=== PATIENT | male | born 1940 | race Caucasian/White ===

== ENCOUNTER 2021-11-12 19:03 | Emergency (ER) | payer OTHER | END 2021-11-13 00:15 | LOC: ER 19:03 | PROVIDERS: Student in an Organized Health Care Education/Training Program | DX: R45.851 Suicidal ideations (principal); Z20.822 Contact with and (suspected) exposure to COVID-19 ==

== ENCOUNTER 2021-11-12 19:36 | Inpatient (IN) | payer OTHER ==
[~2021-11-12] VITALS: Ht 175.3 cm; Wt 77.1 kg
--- NOTE | ~2021-11-12 | D ---
[facility] [address] [place] [address] DISCHARGE SUMMARY Name: FARHAT SNYDER Room #: 528B-B DIS IN M.R.#: [id number] Admission: 11/13/21 Attend Phys: Simone Ly DO Discharge: 11/21/21 Date of : 42 Report #: [id number] THIS REPORT FOR: cc: Adair Hernandez Jr, MD, Jr, Donald J. MD Kerstein, Andrew H. DO ~ DATE OF SERVICE: 11/21/2021 INPATIENT PSYCHIATRIC DISCHARGE SUMMARY ATTENDING PSYCHIATRIST: Simone Ly D.O. PARTS CLEANER: Shayne Dominguez M.D. DISCHARGE DIAGNOSES: Major neurocognitive disorder, likely due to Alzheimer's disease with behavioral disturbance, some improvement and unspecified psychosis. MEDICAL COMORBIDITIES: As follows, hypertension, hyperlipidemia, history of prostate and bladder cancer. The patient is discharging to his home in [place], [place]. His daughter, Erika, will be moving in with him and 24/7 care and supervision will be provided at his home. Overall, his DPOA and son, Chau, has organized this. ACTIVITY LEVEL: As tolerated. No driving. Does require 24/7 supervision. DIET: Regular. DISCHARGE MEDICATIONS: Atorvastatin 10 mg oral daily for hyperlipidemia, amlodipine 10 mg oral daily for hypertension, lisinopril 20 mg oral twice daily for hypertension, aspirin 81 mg oral daily, bupropion XL 300 mg oral daily for depression, Seroquel 300 mg oral at bedtime for psychosis and sleep, potassium chloride 20 mEq oral twice daily for supplementation, fluticasone 2 sprays each nostril daily for allergic rhinitis, docusate 100 mg oral twice daily for bowel motility; pantoprazole 20 mg oral daily for GERD, vitamin B12 1000 mcg oral daily for supplementation, vitamin D3 2000 International Units oral daily for supplementation. LABORATORY DATA: This admission on 11/17, white count 6.6, H and H 14.3 and 44.2, platelet count 240. Chemistry: Sodium 140, potassium 4.0, chloride 105, bicarbonate 25, anion gap 10, BUN 15, creatinine 1.2, estimated GFR 58, glucose 111, calcium 9.7, B12 this admission 952. Folate 18.5. TSH 0.594. Urinalysis this admission, trace blood. COVID-19 serology this admission not detected on 11/20/2021. Imaging this admission, KUB x-ray done on 11/13, for abdominal pain showed no acute process, done this admission. REASON FOR ADMISSION: Back on 11/14, 81-year-old male send out from [facility] in [place], [place]. He was sent to the ER by his [facility] [address] [place] [address] DISCHARGE SUMMARY Name: LILLIANFARHAT Room #: 528B-B DIS IN M.R.#: [id number] Admission: 11/13/21 Attend Phys: Simone Ly, Discharge: 11/21/21 Date of : 42 Report #: [id number] PCP, the patient has been very depressed and wishing that he was no longer alive. The PCP had admitted him to treat him for depression. HOSPITAL COURSE: The patient was admitted to Geriatric Psychiatry Unit. The patient had initial cognitive screening done and his [facility] mental status exam score 10 out of 30. History given that family indicated a neurodegenerative process. We did check him out for reversible causes. They have not done . No material abnormalities were found. Family meeting was had. I had recommended placement. The family came back a couple of days later and wanted to do the care at home. The patient tended to be on a required some prompting to participate in groups. In general, I do not think he required any physical or chemical restraints. CONDITION AT DISCHARGE: Stable. DISCHARGE PHYSICAL EXAMINATION: VITAL SIGNS: On day of discharge, temperature 35.8, pulse 76, respirations 16, BP 140/72. MUSCULOSKELETAL: Fair . MENTAL STATUS EXAMINATION: This is a well-developed, age-appearing male. Attention and concentration limited. Speech slow, reduced volume. Thought process: Linear, limited. Thought content: Focused on specific subjects. on this day of discharge, he was focused with this author sitting beside him . Memory not formally tested. Mood and affect constricted, congruent, diminished range. Insight and judgment impaired. Fund of knowledge below average. PROGNOSIS: The patient is guarded given his age of 81 and major neurocognitive disorder. By: [id number] Simone Ly, /nt
--- NOTE | 2021-11-13 01:18 | NUR ---
PATIENT ARRIVED BY WC FROM OUR ED AFTER HAVING NEGAVTIVE COVID PCR RESULT. PATIENT'S DEMEANOR IS BLUNTED AND SAD. HE IS NEGATIVE AND STATES THAT COMING TO THE UNIT HE SAW THE WORST OF EVERYTHING. HE TALKED ABOUT 'DARK,COLD ELEVATORS THAT LOCKED HIM IN, AND THEN SEEING PEOPLE ROAMING IN THE DINING ROOM AND HEARING WILD WOMEN YELLING OUT. HE STATES HE IS NOT SUICIDAL AND THAT HE HAS BEEN DEPRESSED FOR ABOUT A MONTH. HE IS A/O TO NAME AND PLACE BUT MEMORY ISSUES WITH RECALL SUCH WHO IS THE PRESIDENT OF THE US? AND WHAT IS THE MONTH WE ARE IN. HE HAS A MEDICAL HX OF DEPRESSION, HLD, HTN,PROSTATE AND BLADDER CANCER. PATIENT'S VITALS ARE 150/73,P64, R20, T97.5 AND 02 SAT AT 97% ROOM AIR. PATIENT DID PRESENT WITH PAIN AT RIGHT UPPER ABDOMEN ON PALPATION. THIS WAS ALSO NOTED BY LEANNA VENTURA AND SHE IS LOOKING INTO MORE TESTING. LABS OK. PATIENT HAS HAD COVID [employer] X2 VACCINES PLUS THE BOOSTER. TRIED TO CALL PATIENT'S SON KARINA SNYDER, WHO IS HIS DPOA BUT NO ANSWER. PATIENT WAS ORIENTED TO ROOM AND QUESTIONS ANSWERED. PATIENT VERY NEGATIVE IN HIS CONVERSATION. HE COMPLAINED ABOUT THE WINTER WAS TOO COLD AND THIS PLACE IS JUST COLD. I ADJUSTED HIS HEAT UP FOR HIM AT THAT POINT. PATIENT MADE COMFORTABLE IN BED. HE STATES HE HAS NOT SLEPT FOR A MONTH SINCE THE DEPRESSION CAME ON. DID NOT WANT TO TRY AND TAKE ANY FOR SLEEP SO DID NOT GET AN ORDER. PATIENT IS ANXIOUS AND SCARED TO BE HERE. HE KEEPS ASKING, "DO THOSE PEOPLE WANDER INTO MY ROOM?" I EXPLAINED WE DO HAVE SOME WHO WANDER THE MCDONOUGH BUT HE IS SAFE. PATIENT IS AFRAID THAT HE IS GOING TO BE INCONTINENT. HE STATES IT HASN'T HAPPENED BEFORE BUT HE MAY HAVE AN ACCIDENT. SHOWED HIM WHERE THE BATHROOM IS AND EXPLAINED THAT WE WILL HELP HIM IF THAT HAPPENS. PATIENT LIKES TO GO BY THE NAME "ROBBY". 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 HE HAS BEEN 3 TIMES AND HAS A SON, WHO IS DPOA, AND HIS 2 DAUGHTERS. PATIENT LAYING IN BED AT REST AT THIS TIME. BED IN LOW POSITION AND BED ALARM IS ON. ROUTINE ROUNDS TO ASSESS SAFETY AND STATUS OF PATIENT.
[2021-11-13 03:40] VITALS: BP 150/73
[2021-11-13 07:53] VITALS: BP 150/67
[2021-11-13 09:00] VITALS: BP 150/67
[2021-11-13 10:00] LABS: CHOLESTEROL 113 mg/dL (<200); HDL CHOLESTEROL 41 mg/dL (>40); LDL CHOLESTEROL 56 mg/dL (<100); TC:HDL 2.8 Ratio (Not establshd); TRIGLYCERIDE 81 mg/dL (<150); VLDL 16 mg/dL (<40)
--- NOTE | 2021-11-13 10:49 | NUR ---
Nutrition: pt admitted with unspecified pyschosis, SI to SBH unit. Seen due to new admission. Nsg admission screen indicates poor appetite. Pt unable to expand further, was minimally conversive during visit. Did eat 100% of breakfast this am. Denied need for supplements and was unable to verbalize UBW. Currently BMI 20, WNL. PMH of HLD, HTN, prostate/bladder CA, depression. On B12 and Vitamin D supplementation. Pt did voice he avoids drinking milk as it causes bloating. Able to eat items that are cooked with milk however. Will follow po and weight trends for intervention need. Otherwise consider low risk
--- NOTE | 2021-11-13 12:02 | NUR ---
Yovanny who prefers to go by "Diaz" was alert and oriented x4 this shift. He was withdrawn and isolative to his room this shift, often noted to be resting/sleeping in bed. He was medication and meal compliant without difficulty. He expressed that he does not feel he needs to be here but did endorse feeling depressed. He denied SI/HI/LABOY and remained safe while on the unit. A KUB was done this morning due to pain upon palpitation to his abdomen but KUB was negative. Staff will continue to try to get ahold of pt's sonKenton to get consent for treatment signed as car shifter was unable to get ahold of him. Pt stated he had a BM this morning and did not voice any physical complaints. Will continue to monitor.
--- NOTE | 2021-11-13 14:04 | NUR ---
Pt's daughters phone numbers are: Erika Luciano and Lucila Manuel . Will place in pt's chart as well.
--- NOTE | 2021-11-13 18:03 | NUR ---
MAT and Dr. Bender met with the Pt in his room. Pt was able to answer most of the assessment questions. Pt did not seem to know why he was on a behavioral Health unit and believed he was in the hospital due to having diarrhea. Pt denied SI/HI. Pt was oriented x3. Pt stated that his son Kenton was his DPOA. Pt stated he had a psychiatric inpt stay about 20 years ago due to depression. Pt stated he has been and 3x. Pt currently lives alone and his son Kenton comes to his home to assist a few times per week. Pt reported he has 4 child, 2 son and 2 daughters. Pt denied ETOH or drug use. Pt did not have any questions or concerns at this time. MAT will continue to follow
--- NOTE | 2021-11-13 18:14 | NUR ---
MAT and Dr. Bender attempted to call Kenton, . Kenton did not answer and a VM could not be left due to Kenton's VM being full. Pt's daughter Maritza Manuel, , was avaliable. Maritza informed that Pt started to decline about 2 weeks ago. The Pt was not bathing, not paying his bills, and not taking his medications. Maritza informed Kenton goes to the Pt's home several times a week and sorts the Pts medications for Pt to take, however Pt forgets. Felicia stated Pt has a hx of chronic depression and schizophrenia. Pt's PCP is Adair Hernandez and Pt has an appointment on 12/25/2021. Felicia stated the Pt did not have any mental health services that she was aware of. Maritza informed the Pt's last inpt psych stay was about 10 years ago at [facility]. Jeraldshayla had no questions at this time. Mat will continue to follow.
[2021-11-13 20:14] VITALS: BP 132/90
--- NOTE | 2021-11-13 21:39 | H ---
[facility] [place] [address] HISTORY AND PHYSICAL Name: FARHAT SNYDER Room #: 528B-B ADM IN M.R.#: [id number] Admission: 11/13/21 Attend Phys: Simone Ly DO Discharge: Date of : 42 Report #: [id number] THIS REPORT FOR: cc: Adair Hernandez Jr, MD, Jr, Donald J. MD Kerstein,Simone Medel DO ~ DATE OF SERVICE: 11/13/2021 INPATIENT GERIATRIC PSYCHIATRIC EVALUATION ATTENDING PSYCHIATRIST: Simone Ly DO MEDICAL CONSULTANTS: Sanjana Aiken APRN and Shayne Dominguez MD and his hospitalist team. REASON FOR ADMISSION: Suicidal ideation, depression, poor intake, interrupted sleep. Access to firearms, some self-care failure. SOURCES OF INFORMATION: Telephone conversation with daughterMelina. Chart reviewed. son Kenton is his DPOA -voicemail got when I called, could not leave messages on. I asked the daughter, Melina. She relayed my cell number to the patient's son. The patient was a referral from [facility] in [place], [place]. HISTORY OF PRESENT ILLNESS: The notes from [place] read that the patient presented to the Emergency Room in [place] after he saw his primary care provider earlier in the day. The primary care provider is Dr. Ghosh. The patient had a mental health assessment due to him reporting increased depression, suicidal ideations. In the ER, the patient denied the suicidal ideations; however, he did report to his PCP, he has been very depressed and wishing that he is no longer alive. The patient states he does have poor appetite, but did not mention anything about being nauseous. During the assessment, he denied homicidal ideations and psychosis in the [place] ED. The patient stated several times that he does not want to go inpatient away from his family at [place] with his family. He did state that he has firearms in the home and he agreed to have his children remove them. Dr. Baca, the Emergency Room physician spoke with Dr. Hernandez and they both strongly recommended inpatient psychiatric hospitalization. Apparently, the ED doc noted that he told Dr. Hernandez that he would just not wake up, is not eating well, and has lost weight. Apparently lab work and CT done last week. He has a history 10-12 years ago, severe depression, requiring electroconvulsive therapy. The patient reported he has been feeling bad because he got on some antibiotics for dental work [address] [address] HISTORY AND PHYSICAL Name: MARYA SNYDERT Room #: 528B-B ADM IN M.R.#: [id number] Admission: 11/13/21 Attend Phys: Simone Ly DO Discharge: Date of : 42 Report #: [id number] approximately a month or so ago. PAST MEDICAL HISTORY: Includes bladder cancer, hyperlipidemia, hypertension, prostate cancer. PSYCHIATRIC HISTORY: Depression. No pertinent surgical history. HOME MEDICATIONS: Noted as amlodipine 10 mg daily, Abilify 10 mg oral daily, cholecalciferol vitamin D3 50 mcg 2000 international units oral daily, cyanocobalamin 1000 mcg oral daily, docusate 100 mg oral twice per day, clorazepate which is Tranxene 7.5 mg 2 times a day, Flonase 1 spray each nostril daily, lisinopril 1 tablet by mouth twice a day, meclizine 25 mg 3 times a day as needed, omeprazole 20 mg oral daily, potassium chloride 20 mEq oral daily, and Seroquel 300 mg oral at bedtime. ALLERGIES: TO PENICILLIN. FAMILY HISTORY: Aneurysm in his mother and emphysema in his father. SOCIAL HISTORY: He is a former smoker, no history of smokeless tobacco, never used. Denies alcohol. Denies vaping use. REVIEW OF SYSTEMS: Done in the [facility]. CONSTITUTIONAL: Negative for chills and fever. HEENT: Negative for sore throat. EYES: Negative for visual disturbance. RESPIRATORY: Negative for cough and shortness of breath. CARDIOVASCULAR: Negative for chest pain. GASTROINTESTINAL: Negative for constipation, nausea. Negative for abdominal pain and vomiting. GENITOURINARY: Negative for dysuria. MUSCULOSKELETAL: Negative for back pain and neck pain. SKIN: Negative for rash. NEUROLOGIC: Negative for facial asymmetry, speech difficulty and headaches. Interestingly, the pulmonary, they note increased breath sound in the left base. There is a note here from [facility] in [place]. Apparently, the son has been coming over twice a day to be sure they did not change his medicine; however, there is some question about whether or not he is compliant with medications. Judgment continues to be very sad, reporting that he cannot eat, cannot sleep and is nauseated. He reports that he simply does not wish to [facility] [address] [place] [address] HISTORY AND PHYSICAL Name: FARHAT SNYDER Room #: 528B-B ADM IN M.R.#: [id number] Admission: 11/13/21 Attend Phys: Simone Ly, DO Discharge: Date of : 42 Report #: [id number] live any longer. Apparently, his ECT hospitalization was in [place], I believe they referred him to [place], [place]. LABORATORY DATA: Recent laboratories on 11/05 B12 level 1117. Folate 22.62. Both of those were all within normal limits. White count 11.57, H and H 16.7 and 52, platelet count 236. Sodium was 142, potassium 4.4, chloride 109, bicarbonate 24, anion gap 9, calcium 10.2, glucose 132, total protein serum 7.1, albumin 4.5, alkaline phosphatase 124, ALT 25, AST 26, total bilirubin 0.9, BUN 60, creatinine 1.3, GFR male non- is 53.1. Dr. Hernandez diagnosed him with major depressive disorder, so it sounds like he did that out of safety concerns. No recent labs from the ED up there in [place]. He had a potassium 3.5, alkaline phosphatase slightly elevated at 124, otherwise, his CMP looked reasonable. Creatinine was 1.1. White count 8.5, H and H of 10.5 and 47, platelet count 240. We did a KUb for abdominal pain this AM which was negative. FAMILY HISTORY: He had several children. He has been and 3 times. No longer . He completed 12th grade. He was a part-time juvenile officer in the past. Otherwise, did farming. PHYSICAL EXAMINATION: VITAL SIGNS: Today temperature 36.2, pulse 72, respiratory rate 19, BP 150/67 today, pulse ox 98%. GENERAL: Lying in bed, somewhat disheveled, slow, monotone speech. MENTAL STATUS EXAMINATION: Well-developed, depressed, ill-appearing male. Attention and concentration fair to limited. Speech: Monotone flat. Thought process: Linear, limited. Thought content: Relative poverty of thought. Denied presently suicidal or homicidal ideations. Denied auditory, visual, or tactile hallucinations, reporting is not sure why he is in the hospital, he was overall slow to respond. Memory not formally tested. Insight and judgment limited. Fund of knowledge below average. FORMULATION: An 81-year-old male brought in from [facility] for SI without plan. History of severe depression, requiring ECT. DIAGNOSES: At this time, major depressive disorder, recurrent, severe degree. Cannot exclude major neurocognitive disorder. Still need to evaluate. His medical comorbidities include hypertension, B12 deficiency, hyperlipidemia. PLAN: Admitted to [facility] voluntarily. At this point, started on Seroquel 300 mg oral at bedtime, potassium chloride 20 mEq p.o. b.i.d., lisinopril 20 mg p.o. b.i.d., Flonase 1 spray each nostril daily, docusate 100 mg p.o. b.i.d., cyanocobalamin 1000 mcg oral daily, clonazepam 0.[address] of Tranxene, vitamin D 2000 International Units oral daily that is really D3, atorvastatin 10 mg oral daily, [facility] [address] [place] [address] HISTORY AND PHYSICAL Name: MARYA SNYDERT Room #: 528B-B ADM IN M.R.#: [id number] Admission: 11/13/21 Attend Phys: Simone Ly, Discharge: Date of : 42 Report #: [id number] aspirin 81 mg oral daily, aripiprazole 2 mg p.o. daily, amlodipine 10 mg p.o. daily, pantoprazole 20 mg p.o. daily. We will evaluate, stabilize see how he does the next 1-2 days, complete cognitive assessment before going over further diagnostic and medication concerns. He is a full code. ALLERGIES: TO PENICILLIN. Time spent on this case at least 60 minutes, greater than 50% of time was for review of records and coordination of care. STRENGTHS: He is insured, has supportive family. WEAKNESSES: poor coping skills <ELECTRONICALLY SIGNED> By: Simone Ly DO 11/13/21 [id number] Simone Ly DO /nt
--- NOTE | 2021-11-14 04:18 | NUR ---
CARE TRANSFERRED 1899. LATER PT AAOX2, VSS, RR EVEN AND NONLABORED ON RA. PT DENIES SI/HI AND PAIN. PT CALM AND COOPEATIVE. PT BED ADJUSTED FOR COMFORT. PT LUNGS CLEAR, HT RR, ABD SOFT/ACTIVE/NONTENDER. PT HAD NO DIFFICULTIE TAKING MEDICATION WHOLE WITH WATER. PT WILL CONTINUE TO BE MONITOR PER [facility] PROTOCOL.
[2021-11-14 07:09] LABS: GLYCOHEMOGLOBIN (HGB A1C) 5.3 % (4.8-5.6)
[2021-11-14 09:58] VITALS: BP 136/76
[2021-11-14 10:50] VITALS: BP 128/64
[2021-11-14 12:20] VITALS: BP 136/76
--- NOTE | 2021-11-14 13:34 | NUR ---
RESUMMED CARE; PATIENT LOCATED IN HIS ROOM RESTING COMFORTABLY; PATIENT DENIES PAIN-SOB-CP; NO ACUTE S/O DISTRESS NOTED; VSS ON ROOMAIR; PATIENT DENIED SI/HI/AVH; PRESENTS CALM-FLAT AFFECT; DENIES BEING DEPRESSED BUT STATES "I'M JUST TIRED." PATIENT TOOK MEDICATIONS WHOLE IN APPLESAUCE THIS MORNING; ST SAW PATIENT FOR MEDICATION ADMINISTRATION AND BREAKFAST; MEAL/MED COMPLAINT; AMBULATES WITHOUT AID-STEADY GAIT; A&O*2; WITHDRAWN-PATIENT WAS IN HIS ROOM MOST OF THE DAY-DID ATTEND GROUPS; PATIENT STATED HE HAD A BOWEL MOVEMENT YESTERDAY- ABDOMEN WAS EOPB-[id number] TENDERNESS PRESENT IN LRQ-LLQ, BSP*4; ON LOW-FALL RISK PRECAUTIONS; WILL CONTINUE TO MONITIOR FOR SAFETY AND BEHAVIORS;
[2021-11-14 15:23] LABS: CALCIUM 9.7 mg/dL (8.5-10.1); CREATININE 1.4 mg/dL (0.7-1.3); MAGNESIUM 2.1 mg/dL (1.8-2.4); POTASSIUM 4.3 mmol/L (3.5-5.1)
[2021-11-14 19:38] VITALS: BP 128/64
--- NOTE | 2021-11-14 23:23 | NUR ---
PATIENT CARE WAS RESUMED AT 1900.HE IS ALERT AND ORIENTED. HE WAS RESTING IN BED IN HIS ROOM AND HE IS ABLE TO VERBALIZE HIS NEEDS AND CONCERN. DENIES PAINS/SI/AVH/HI. BS IS ACTIVE X4 QUADS.ABD IS SOFT AND NON TENDER. HE TOOK HIS MEDS WHOLE. MIN ASSIST WITH CARE.HE IS CONTINENT OF BOWEL AND BLADDER.BED IS LOW AND LOCKED.Q12 MINUTES CHECKS ARE ON GOING.NON SKID SOCKS ON. CONTINUE CARE AND MONITOR.
[2021-11-15 09:13] VITALS: BP 127/78
[2021-11-15 12:00] VITALS: BP 127/78
--- NOTE | 2021-11-15 13:33 | NUR ---
RESUMMED CARE; PATIENT LOCATED IN ROOM RESTING COMFORTABLY; PATIENT DENIES PAIN-SOB-CP; PATIENT PRESENTS [id number]-RUXB-[id number]-FLAT AFFECT; PATIENT DENIES BEING DEPRESSED, ALTHOUGH STATES "I JUST WANT TO BE ANYWHERE BUT HERE." PATIENT HAS TO BE ENCOURAGED BY STAFF TO PARTICIPATE IN GROUPS; SPECIAL EDUCATION RESOURCE ROOM TEACHER ASKED PATIENT IF HE WOULD BE INTERESTED IN A SHOWER AND SHAVE-PATIENT STATES "THERE IS NOT POINT ANYMORE." AMBULATORY WITHOUT AID-STEAY GAIT; VSS ON ROOMAIR; DENIES SI/HI/AVH; LOW-FALL RISK PRECAUTIONS ARE IN PLACE; A&O*2; CONFUSED; MEAL/MEDICATION COMPLIANT; WILL CONTINUE TO MONITIOR PER [facility] PROTOCOL;
--- NOTE | 2021-11-15 18:23 | NUR ---
MAT and Dr. Bender recieved a call from Kenton, Pt's son/DPOA. Kenton was provided with and update on the Pt. Also recommendation that Pt is needing 24/ supervision. Kenton stated he wanted to speak with his sisters concerning the matter. The Pt may not qualify for medicaid due to owning 2 homes at this time. Kenton was unsure of the Pt's full financial situation. A family meeting was set for 11/16/21 @ 1300. MAT will continue to follow
[2021-11-15 19:47] VITALS: BP 123/60
[2021-11-15 20:00] VITALS: BP 123/60
--- NOTE | 2021-11-15 23:46 | NUR ---
RACIELSURI CARE WAS RESUMED AT 1900. HE WAS IN HIS ROOM RESTING IN BED. LUNGS ARE CLEAR AND HE IS ABLE TO VERBALIZE HIS NEEDS. TOOK HIS MEDS WHOLE AND DENIES PAINS/SI/AVH/HI.NO CONCERN NOTED AT THIS TIME. BED IS LOW AND LOOCK [id number] CHECKS ARE ACTIVE CONTINUE CARE
[2021-11-16 09:53] VITALS: BP 143/72
[2021-11-16 10:16] VITALS: BP 143/72
--- NOTE | 2021-11-16 17:21 | NUR ---
MAT and Dr. Bender participated in a family meeting. The Pt was apart of this meeting. Kenton, Erika, and Jelly (Pt's children) were also on apart on the meeting via phone. An update was given on the Pt and the recommedation for Assisted living was given. Placement vs going back home was discussed. The family stated they would like to place the Pt due to no one being able to care for the Pt in the home. MAT and Dr. Ly provided education on LTC placement and payment for LTC. The family was encouraged to look at the Pt's finances and AL facilities. MAT will check back in with the family on Friday concerning placement.
--- NOTE | 2021-11-16 18:06 | NUR ---
Pt was alert and oriented to self and time, but disoriented to place and situation. He believed that he was in the "lounge of a muslim or recreation center". He presented as calm, cooperative, pleasant, and withdrawn. He does present as depressed but denied SI/HI/LABOY and remained safe on the unit throughout the day. He was medication and meal compliant, without difficulty. Pt received a shower this shift, with much encouragement from staff. Dr. Ly approached this RN and asked to develop a schedule for pt to call his three children; one child a day. A copy of the schedule was place in the top of pt's chart, and will pass the schedule on to the oncoming shift as pt had asked for the nurse to hang out to it and remind him each day. When initially approached with the schedule pt stated "oh, I can't do that". After talking to pt he expressed feeling like a bother to his children. He was reassured and given emotional support. After talking he was more open to the schedule and calling them. Pt voiced some complaints of congestion this afternoon and stated "I feel like I don't have enough oxygen". O2 was checked and pt was at 96%. This may have been due to some anxiety as pt expressed "now I'm dealing with Alzheimer's too". Pt was less isolative to his room this shift and sat in the day room for most of the day. After dinner pt went to lay down in his room and is currently resting quietly. Pt did voice some c/o constipation this shift; milk of mag given PRN per DEC. Pt did not voice any other physical complaints this shift, will continue to monitor.
[2021-11-16 19:02] VITALS: BP 137/70
--- NOTE | 2021-11-17 00:10 | NUR ---
PATIENT CARE WAS RESUMED AT 1900. HE WAS IN HIS ROOM LYING IN BED. ALERT AND ABLE TO VERBALIZE SOME CONCERNS. HE AMBUALATES AND DENIES ANY CONCERNS AT THIS TIME. COTINNIT OF BOWEL AND BLADDER. TOOK HIS MEDS WHOLE WITH H2O. BS ACTIVE X4 QUADS AND HE IS A MODERATE ASSIST WITH CARE. BED IS LOW AND LOCKED. [id number] CHECKED ARE ACTIVE CONTINUE CARE
--- NOTE | 2021-11-17 00:46 | NUR ---
PATIENT CARE WAS RESUMED AT 1900. HE IS RESTING IN BED AND HE DENIES PAINS/SI/AVH/HI. HE AMBULATES AND TOOK HIS MEDS WHOLE. LUNGS ARE CLEAR BS ACTIVE X4 QUADS. BED IS LOW, LOCKED AND [id number] CHECKS ARE ACTIVE. NO CONCERN NOTED AT THIS TIME
[2021-11-17 10:08] VITALS: BP 135/67
[2021-11-17 10:56] VITALS: BP 135/67
--- NOTE | 2021-11-17 11:37 | NUR ---
RESUMMED CARE; PATIENT LOCATED IN ROOM RESTING COMFORTABLY; A&O*2; DENIES SOB-CP; NO S/O ACUTE DISTRESS NOTED; VSS ON ROOMAIR; PATIENT DEINES SI/HI/AVH-ALTHOUGH PRESENTS WITHDRAWN AND FLAT; GAGGERMAN ASKED PATIENT IF HE HAD ANY CONCERNS HE WANTED TO VOICE TO ME- PT STATED " WONT HELP ANYTHING ANYWAYS." PATIENT IS LESS ISOLATIVE TODAY, HAS BEEN VISUALIZED OUT IN THE DINING ROOM AMONG PEERS MOST OF THE DAY; PATIENT STATES HE WANTS TO SHAVE TODAY; MEALS HAVE BEEN INCREASED TO DOUBE PORTIONS PATIENT STATED AT BREAKFAST HE WAS STILL HUNGRY; PATIENT COMPLAINTS OF RIGHT SIDED FLANK PAIN-03/05- PATIENT STATES ITS JUST FROM SLEEPING ON MY SIDE; FALL PRECAUTIONS ARE IN PLACE; WILL CONTINUE TO MONITIOR PER [facility] PROTOCOL;
[2021-11-17 14:29] LABS: ABSOLUTE NEUTROPHILS 5.1 thou/uL (1.4-8.2); BASOPHILS 0.5 % (0.0-2.0); EOSINOPHILS 1.3 % (0.0-3.0); HEMATOCRIT 44.2 % (42.0-52.0); HEMOGLOBIN 14.3 gm/dL (14.0-18.0); LYMPHOCYTES 13.2 % (24.0-44.0); MCH 30.1 pg (26.0-34.0); MCHC 32.3 g/dL (28.0-37.0); MCV 93.3 fL (80.0-100.0); MONOCYTES 7.6 % (1.0-8.0); PLATELET COUNT 240 thou/uL (150-400); POLYS 77.4 % (36.0-66.0); RBC 4.74 mil/uL (4.50-6.00); RDW 13.3 % (10.5-14.5); WBC 6.6 thou/uL (4.0-11.0)
[2021-11-17 14:45] LABS: ALBUMIN 3.6 g/dL (3.4-5.0); CALCIUM 9.7 mg/dL (8.5-10.1); CREATININE 1.3 mg/dL (0.7-1.3); MAGNESIUM 2.4 mg/dL (1.8-2.4); POTASSIUM 4.2 mmol/L (3.5-5.1); TOTAL BILIRUBIN 0.5 mg/dL (0.2-1.0); TOTAL PROTEIN 6.7 g/dL (6.4-8.2)
[2021-11-17 19:11] VITALS: BP 121/63
[2021-11-17 19:57] VITALS: BP 121/63
--- NOTE | 2021-11-17 21:56 | NUR ---
PATIENT CARE CONTINUED INTO NEXT SHIFT; NO S/O ACUTE DISTRESS NOTED; A&O*2- INCREASED CONFUSION NOTED DURING EVENING ASSESSMENT; VSS ON ROOMAIR; PATIENT DENIES PAIN AT THIS TIME- COMPLAINTS OF INCREASED BOWEL MOVEMENTS- DOCUSATE HELD PER COMPLAINT; DENIES SOB-CP; DENIES SI/HI/AVH; PATIENT PRESENTS WITHDRAWN-SEATED IN CORNER IN [place]ING [place] NON COMMUNICATIVE WITH PEERS; SOFT SPOKEN AND WISPERS WHEN SPEAKING; MEDICATION COMPLIANT; LOW-FALL PRECAUTIONS ARE IN PLACE; RECENT LABS REVIEWED BY [employer]; CARES BEING HANDED OFF TO RN;
[2021-11-18 09:23] VITALS: BP 151/62
[2021-11-18 19:43] VITALS: BP 128/62
[2021-11-18 19:50] VITALS: BP 128/62
--- NOTE | 2021-11-18 23:19 | NUR ---
PATIENT CARE WAS RESUMED AT 1900. HE IS ALERT AND ORIENTED WITH SOME FORGETFULNESS.LUNGS ARE CLEAR BS ACTIVE X4 QUAD.HE TOOK HIS MEDS WHOLE AND DENIES PAINS/SI/AVH/HI. HE IS CNTINENT OF BOWEL AND BLADDER. HE AMBULATES AND NEEDS A MINI ASSIT WITH CARE.BED IS LOW,LOCKED AND ALARMED.NON SKID SOCK ON. [id number] CHECK IS ONGOING.
[2021-11-19 07:45] LABS: CALCIUM 9.7 mg/dL (8.5-10.1); CREATININE 1.2 mg/dL (0.7-1.3)
[2021-11-19 09:38] VITALS: BP 128/80
[2021-11-19 09:38] LABS: FOLIC ACID 18.5 ng/mL (8.6-58.9)
[2021-11-19 10:35] LABS: URINE BILIRUBIN NEGATIVE (Negative); URINE BLOOD TRACE (Negative); URINE CLARITY CLEAR; URINE COLOR YELLOW; URINE GLUCOSE-RANDOM* NEGATIVE (Negative); URINE KETONES NEGATIVE (Negative); URINE LEUKOCYTES-REFLEX NEGATIVE (Negative); URINE NITRITE-REFLEX NEGATIVE (Negative); URINE PROTEIN (DIPSTICK) NEGATIVE (Negative); URINE SPECIFIC GRAVITY 1.025 (1.005-1.035); URINE UROBILINOGEN 0.2 E.U./dl (0.2-1.0)
--- NOTE | 2021-11-19 12:42 | NUR ---
RESUMMED CARE; PATIENT LOCATED IN CHAIR ALONG SIDE PEERS IN [place]ING [place]; A&O*2-INTERMITTENT DISORIENTATION*3; PRESENTS WITH FLAT AFFECT; DENIES SI/HI/AVH; VSS ON ROOMAIR; AMBULATES WITH STEADY GAIT WITHOUT AID; DENIES PAIN-SOB-CP; URINALYSIS COLLECTED AFTER PHOTOGRAPH RETOUCHER NOTED FOUL SMELLING URINE- RESULTS REVIEWED; PATIENT VISUALIZED VERY WITHDRAWN- SIT IN CORNER IN DINNING ROOM STAIRING OFF INTO SPACE; PHOTOGRAPH RETOUCHER ABLE TO REORIENTATE PATIENT FOR SHORT PERIODS OF TIME; LOW-FALL PRECAUTIONS ARE IN PLACE; BLADDER SCAN COMPLETED @1005 PER MD CACERES ORDERS FOR ABD DISCOMFORT PER HER ASSESSMENT- BLADDER SCAN RESULTS WITH 75CC RETAINED URINE; WILL CONTINUE TO MONITIOR PATIENT PER [facility] PROTOCOL;
[2021-11-19 14:36] VITALS: BP 128/80
[2021-11-19 19:57] VITALS: BP 116/46
[2021-11-19 20:20] VITALS: BP 118/58
--- NOTE | 2021-11-20 05:07 | NUR ---
11-20-21 CARE TRANSFERRED 1899. LATER PT AAOX2, VSS, RR EVEN AND NONLABORED ON RA, LUNGS CLEAR, HT RR, ABD SOFT/ACTIVE/NONTENDER. PT DENIES SI/HI AND PAIN. PT HAS BEEN PLESANT, CALM AND COOPEATIVE THROUGHOUT NURSING ASSESSMENT. LATER PT WAS REDIRECTED TO ROOM FOR CARES, PT WAS CONFUSED BUT ALLOWED STAFF TO ASSIST TO ROOM AND WAS CALM AND COOPEATIVE DURING CARES. DURING MEDICATION PT HAD NO DIFFICULTIES TAKING MEDICATION. PT WILL CONTINUE TO BE MONITOR PER [facility] PROTOCOL.
[2021-11-20 09:11] VITALS: BP 150/69
--- NOTE | 2021-11-20 10:40 | NUR ---
Nutrition followup: pt continues on [facility] unit with psychosis, SI. Eats excellent, 75-100% of meals with nsg adding double portions recently due to large appetite. 11/19 BM. On B12, vitamin D. Weight discrepancy of 138# to 170#. Nsg obtained re-weigh at 163#. Follow trends. Low nutrition risk.
--- NOTE | 2021-11-20 10:45 | NUR ---
RT Progress Note- Yovanny's presence in both the milieu and recreation therapy groups has been variable. He often isolates to his room between meals and is hesitant to come to group, though this has improved towards the end of this review period with increased presence in both areas. Yovanny appears depressed and does endorse feeling depressed upon group conversations. Upon discussion of coping skills, Yovanny continues to struggle to identify areas of interest. RECYCLING PROGRAM MANAGER will continue to encourage participation and greater presence in the milieu.
--- NOTE | 2021-11-20 10:58 | NUR ---
Alert and happy. Only able to state name. No speech or behavior suggestive of SI/HI. Breath sounds clear. Reg HR auscultated. Color pink with brisk capillary refill and palpable peripheral pulses. Initial BP this AM 75/63, repeated at 0800 90/56 with good perfusion. O2 sat 100%. Incontinent of large amt yellow urine. Active bowel sounds over soft, rounded abdomen. Resistant to getting out of bed. 2 staff assist to chair. Sitting out in dining room without s/o distress. Passed on in report that DPOA wanted pt to work with PT as she had been walking previously. Dr. Ly notified, order placed.
--- NOTE | 2021-11-20 11:53 | NUR ---
Alert and orientated to person, place and time. Denies SI/HI. Breath sounds clear. Reg HR auscultated. Color pink with brisk capillary refill and palpable peripheral pulses. Independent with voiding. Pt states it has been several days since BM, feels he is constipated. Milk of magnesium given. Ambulates with regular, steady gait, changed into his own Tshirt. No s/o distress.
--- NOTE | 2021-11-20 16:28 | NUR ---
MAT and Dr. Ly spoke with Kenton by phone. Kenton informed that he has decided to take the Pt home. Also that the Pt's daughter Erika would be moving in with the Pt to provide care in the home. MAT encouraged family to look into private duty nursing to assist in the care of the Pt and provide a respite to Erika when needed. MAT asked Kenton if he removed firearms from the home. Kenton stated he had not but would have them removed before the Pt returned. MAT and Dr. Bender expressed agreement with the plan. There were no other questions or concerns at this time. MAT will continue to follow
[2021-11-20 19:21] VITALS: BP 147/78
[2021-11-20 22:25] VITALS: BP 147/78
--- NOTE | 2021-11-21 01:53 | NUR ---
Yovanny, "Diaz", was alert and oriented x4 this shift as he was able to answer all orientation questions, but he presented as forgetful and confused. He appears to have some thought blocking when answering questions or holding a conversation. He expressed his mood has slightly improved but continues to present as withdrawn and depressed. He was medication compliant, taking pills whole without difficulty. He appeared slightly paranoid as he was looking at his medication suspiciously and smelled them. At bedtime pt shut his door all the way and when staff attempted to open the door he was right there and would not allow staff to fully open the door. He appeared more confused at that time and required reorientation and this RN's familiar face, which pt then allowed staff into the room. Pt is now resting quietly in bed. He denied any physical symptoms this shift and reports he did have a BM on 11/20/21 after c/o constipation on . Will continue to monitor.
[2021-11-21 07:30] VITALS: BP 140/72
[2021-11-21 09:40] VITALS: BP 140/72
--- NOTE | 2021-11-21 11:59 | NUR ---
Assummed pt care this morning from overnight shift. Pt presented alert to self, situation, and place, but was confused about time and slightly paranoid in regard to medication and purpose of staff. Pt questioned medication and purpose of each medication as staff was passing medication, something that he usually does not do during medication passes. Staff sat with pt and explained purpose of each medication, and explained which medications were vitamins, which medications were for physical health, and which medications were for mental health which alleviated pt anxiety per pt report. Pt shoulders visibly relaxed, and pt took medication without issue and tolerated it well. Pt stated that he had some anxiety, but denied depression. Pt denied hallucinations. Pt also denied any suicidal or homicidal thoughts at this time. Last BM 11/20/21 and bowel sounds were found to be active. Lung sounds clear. Pt found to be more relaxed after talking to staff, with smile on face, and less perplexed expression after meeting. No further concerns at this time.
[2021-11-21] MEDS ORDERED: LIPITOR10 MG PO (12:21)
[2021-11-21] MEDS ORDERED: NORVASC10 MG PO (12:21)
[2021-11-21] MEDS ORDERED: LISINOPRIL20 MG PO (12:22)
[2021-11-21] MEDS ORDERED: ADULT LOW DOSE81 MG PO (12:23)
[2021-11-21] MEDS ORDERED: POTASSIUM CHLO20 MEQ PO (12:24)
[2021-11-21] MEDS ORDERED: SEROQUEL300 MG PO (12:24)
[2021-11-21] MEDS ORDERED: BUPROPION XL300 MG PO (12:24)
[2021-11-21] MEDS ORDERED: COLACE100 MG PO (12:25)
[2021-11-21] MEDS ORDERED: FLONASE 0.05%50 MCG NASAL (12:25)
[2021-11-21] MEDS ORDERED: PROTONIX 20 MG20 M1 PO (12:29)
[2021-11-21] MEDS ORDERED: VITAMIN B-12500 MCG PO (12:34)
[2021-11-21] MEDS ORDERED: VITAMIN D325 MC2 PO (12:34)
[2021-11-21 13:19] VITALS: BP 140/72
--- NOTE | 2021-11-22 17:14 | NUR ---
Pt had the following follow up appointments: PCP- Dr. Adair Hernandez 12/07/2021 @ 1300 Psychiatric Intake- [facility] 11/28/2021@ 945
== END 2021-11-21 16:30 | disposition home or self-care (01) | DRG 57 ==
LOC: SBH 19:36
PROVIDERS: Hospitalist; Internal Medicine; ADMIT Psychiatry & Neurology Psychiatry; ATTEND Psychiatry & Neurology Psychiatry
DX: G30.9 Alzheimer's disease, unspecified (principal); F33.2 Major depressive disorder, recurrent severe without psychotic features; R45.851 Suicidal ideations; F02.81 Dementia in other diseases classified elsewhere, unspecified severity, with behavioral disturbance; F01.51 Vascular dementia, unspecified severity, with behavioral disturbance; Z20.822 Contact with and (suspected) exposure to COVID-19; E78.5 Hyperlipidemia, unspecified; I10 Essential (primary) hypertension; K21.9 Gastro-esophageal reflux disease without esophagitis; Z60.2 Problems related to living alone; Z85.51 Personal history of malignant neoplasm of bladder; Z83.6 Family history of other diseases of the respiratory system; Z85.46 Personal history of malignant neoplasm of prostate
CPT/HCPCS: 10880